=== PATIENT | female | born 1965 | race Caucasian/White ===

== ENCOUNTER 2022-03-31 15:10 | Emergency (ER) | payer OTHER, SELFPAY ==
[2022-03-31 15:20] VITALS: BP 124/80; PULSE 88; RESP 16; TEMP 37.4; O2SAT 99; BMI 22.8
--- NOTE | 2022-03-31 16:02 | CRLHL7_ITS ---
For Patients: As a result of the Century Cures Act, medical imaging exams and procedure reports are released immediately into your electronic medical record. You may view this report before your referring provider. If you have questions, please contact your health care provider. INDICATION: Left upper quadrant abdomen pain. TECHNIQUE: CT abdomen and pelvis without contrast. COMPARISON: None. FINDINGS: Lower chest: Unremarkable. Liver: Normal in size and attenuation. No suspicious masses. Gallbladder and bile ducts: No stones or inflammation. No biliary dilatation. Pancreas: Unremarkable. No mass or inflammation. Spleen: Normal in size. No masses. Adrenal glands: Normal in size. No nodules. Kidneys: Normal in size. No suspicious masses, stones, or hydronephrosis. GI tract: There is acute inflammation of a diverticulum in the proximal descending colon. No sign of salomon perforation or abscess. Remainder of the exam is unremarkable. Normal appendix. Vasculature: Abdominal aorta is normal in caliber. Lymph nodes: No lymphadenopathy. Peritoneum/Abdominal Wall: Unremarkable. No sign of mass or infiltration. No free air or significant free fluid. Pelvis: Unremarkable. No pelvic masses. Bones: Unremarkable for age. IMPRESSION: Acute uncomplicated diverticulitis in the proximal descending colon. Please note that all CT scans at this facility use dose modulation, iterative reconstruction, and/or weight-based dosing when appropriate to reduce radiation dose to as low as reasonably achievable. Dictated by Shahid Ambriz MD @ 03/31/2022 4:39:35 PM (Electronically Signed)
--- NOTE | 2022-03-31 16:05 | ED.GENADULT ---
HPI - General Adult General Time Seen by Provider: 16:06 Date Seen: 03/31/22 Chief complaint: Abdominal Pain Stated complaint: Abdominal Pain Time Seen by Provider: 03/31/22 15:56 Source: patient Mode of arrival: ambulatory Limitations: no limitations History of Present Illness HPI narrative: Patient is a 56-year-old female who reports some left upper quadrant pain starting this morning took some ibuprofen, seemed to get better, not going to come back. She feels a little bit chilled as well, and a little bit ?off?. No dysuria, no frequency, no hematuria, no bowel or bladder symptoms. No cough chest pain. She can make it hurt in the left upper quadrant with palpation and her lower costochondral margin area. No bleeding or clotting problems, pain was moderate, nonradiating Related Data Previous Rx's Medication Instructions Recorded amoxicillin 500 mg-potassium 1 tab PO BID #10 tabs 03/31/22 clavulanate 125 mg tablet (Augmentin) Allergies Allergy/AdvReac Type Severity Reaction Status Date / Time No Known Drug Allergies Allergy Verified 03/31/22 15:27 Review of Systems Status of ROS: Reports: 6 or more systems reviewed and unremarkable except as noted in History and below PFSH PFS Social History Smoking Status: Never smoker How often do you have a drink containing alcohol: never AUDIT-C Alcohol total score: 0 Non-prescribed substance use: denies use Exam Narrative: Exam Narrative: Objective: Patient has a low-grade temperature, appears in no apparent distress HEENT unremarkable Neck is supple Pulses regular Abdominal exam shows some left upper quadrant tenderness right along the costochondral margin and a bit in the abdomen is definitely tender to touch bowel sounds normoactive no rebound no other abdominal tenderness extremities are no edema Neurologic nonfocal Peripheral perfusion is good, skin warm and dry Const: Vital Signs, click to edit/add: Vital Signs - 24 hr 03/31/22 15:20 Temperature 99.3 F Pulse Rate [Right Pulse Oximeter] 88 Respiratory Rate 16 Blood Pressure [Ri ght Upper Arm] 124/80 Pulse Oximetry 99 Oxygen Delivery Me thod Room Air Course Vital Signs Vital signs: Initial Vital Signs Temperature 99.3 F 03/31/22 15:20 Temperature Source Temporal Artery Scan 03/31/22 15:20 Pulse Rate 88 03/31/22 15:20 Respiratory Rate 16 03/31/22 15:20 Blood Pressure 124/80 03/31/22 15:20 Blood Pressure Mean 94 03/31/22 15:20 Blood Pressure Position Sitting 03/31/22 15:20 Pulse Oximetry 99 03/31/22 15:20 Oxygen Delivery Method 03/31/22 15:20 Vital Signs Temperature 99.3 F 03/31/22 15:20 Pulse Rate 88 03/31/22 15:20 Respiratory Rate 16 03/31/22 15:20 Blood Pressure 124/80 03/31/22 15:20 Pulse Oximetry 99 03/31/22 15:20 Oxygen Delivery Method 03/31/22 15:20 Temperature 99.3 F 03/31/22 15:20 Pulse Rate 88 03/31/22 15:20 Respiratory Rate 16 03/31/22 15:20 Blood Pressure 124/80 03/31/22 15:20 Pulse Oximetry 99 03/31/22 15:20 Oxygen Delivery Method 03/31/22 15:20 Medical Decision Making [facility] Narrative Medical decision making narrative: Patient has some left upper quadrant abdominal pain with fever, I think rule out lower lobe pneumonia rule out diverticulitis would be appropriate. Will check labs electrolytes, patient declines any pain medicine at this time, IV fluid be given. Check electrolytes liver function profile amylase urinalysis. Addendum: Patient has uncomplicated diverticulitis in the proximal descending colon, weight her other labs, will give her Augmentin 875 now and then b.i.d. for 5 days, clear diet for 24-48 hours, recheck with primary care at that time not improving changes concerns worsening return to ED. Lab Data Labs: Lab Results 03/31/22 03/31/22 03/31/22 Range/Units 16:03 16:33 16:33 WBC 9.36 (4.50-11.00) K/uL RBC 4.45 (4.00-5.20) m/uL Hgb 13.8 (12.0-16.0) gm/dL Hct 40.3 (33.0-51.0) % MCV 91 (80-100) fL MCH 31 (26-34) pg MCHC 34 (32-36) gm/dL RDW Coeff of Demetrius 11.7 (11.5-15.5) % Plt Count 139 L (140-440) K/uL Neut % (Auto) 68.4 (42.0-72.0) % Lymph % (Auto) 26.5 (20-44) % [place] % (Auto) 4.7 (0.0-11.0) % Eos % (Auto) 0.2 (0.0-7.0) % Baso % (Auto) 0.1 (0.0-3.0) % Neut # (Auto) 6.40 (1.7-7.0) K/uL Lymph # (Auto) 2.48 (0.90-2.90) K/uL [place] # (Auto) 0.40 (0.00-0.90) K/UL Eos # (Auto) 0.02 (0.00-0.50) K/uL Baso # (Auto) 0.01 (0.00-0.30) K/uL Abs Immat Gran (auto) 0.01 (0.00-0.30) K/uL Sodium 141 (135-149) mmol/L Potassium 3.8 (3.6-5.1) mmol/L Chloride 101 (96-114) mmol/L Carbon Dioxide 26 (20-32) mmol/L BUN 15 (7-30) mg/dL Creatinine 0.5 (0.5-1.5) mg/dL Estimated Creat Clear 128.24 Estimated GFR 111 ml/min Glucose 99 (60-115) mg/dL Calcium 9.8 (8.4-10.6) mg/dL Total Bilirubin 1.1 (0.1-1.5) mg/dL Direct Bilirubin 0.0 (0.0-0.5) mg/dL AST 25 (12-35) U/L ALT 22 (4-35) U/L Alkaline Phosphatase 114 (40-150) U/L C-Reactive Protein (0.5-1.0) mg/dL Total Protein 7.8 (6.0-8.3) g/dL Albumin 4.9 (3.3-5.0) g/dL Amylase 83 (18-89) U/L Urine Color Yellow (Yellow) Urine Appearance Clear (Clear) Urine pH 5.5 (5.0-8.5) Ur Specific [place] 1.015 (1.000-1.030) Urine Protein Negative (Negative) Urine Glucose (UA) Negative (Negative) Urine Ketones 3+ A (Negative) Urine Blood 1+ A (Negative) Urine Nitrite Negative (Negative) Urine Bilirubin Negative (Negative) Urine Urobilinogen 0.2 (0.2-1.0) Ur Leukocyte Esterase Negative (Negative) Urine RBC 2-5 A (0-2) Urine WBC 0-2 (0-5) Ur Squamous Epith Cells Few (None-Few) Urine Bacteria None (None) 03/31/22 Range/Units 16:33 WBC (4.50-11.00) K/uL RBC (4.00-5.20) m/uL Hgb (12.0-16.0) gm/dL Hct (33.0-51.0) % MCV (80-100) fL MCH (26-34) pg MCHC (32-36) gm/dL RDW Coeff of Demetrius (11.5-15.5) % Plt Count (140-440) K/uL Neut % (Auto) (42.0-72.0) % Lymph % (Auto) (20-44) % [place] % (Auto) (0.0-11.0) % Eos % (Auto) (0.0-7.0) % Baso % (Auto) (0.0-3.0) % Neut # (Auto) (1.7-7.0) K/uL Lymph # (Auto) (0.90-2.90) K/uL [place] # (Auto) (0.00-0.90) K/UL Eos # (Auto) (0.00-0.50) K/uL Baso # (Auto) (0.00-0.30) K/uL Abs Immat Gran (auto) (0.00-0.30) K/uL Sodium (135-149) mmol/L Potassium (3.6-5.1) mmol/L Chloride (96-114) mmol/L Carbon Dioxide (20-32) mmol/L BUN (7-30) mg/dL Creatinine (0.5-1.5) mg/dL Estimated Creat Clear Estimated GFR ml/min Glucose (60-115) mg/dL Calcium (8.4-10.6) mg/dL Total Bilirubin (0.1-1.5) mg/dL Direct Bilirubin (0.0-0.5) mg/dL AST (12-35) U/L ALT (4-35) U/L Alkaline Phosphatase (40-150) U/L C-Reactive Protein 2.4 H (0.5-1.0) mg/dL Total Protein (6.0-8.3) g/dL Albumin (3.3-5.0) g/dL Amylase (18-89) U/L Urine Color (Yellow) Urine Appearance (Clear) Urine pH (5.0-8.5) Ur Specific [place] (1.000-1.030) Urine Protein (Negative) Urine Glucose (UA) (Negative) Urine Ketones (Negative) Urine Blood (Negative) Urine Nitrite (Negative) Urine Bilirubin (Negative) Urine Urobilinogen (0.2-1.0) Ur Leukocyte Esterase (Negative) Urine RBC (0-2) Urine WBC (0-5) Ur Squamous Epith Cells (None-Few) Urine Bacteria (None) Discharge Plan Discharge Clinical Impression: Abdominal pain, left upper quadrant, Diverticulitis Patient Disposition: Home, Self-Care Condition: Stable Additional Instructions: Liquid diet for 24 hours, Augmentin 875 b.i.d. x7 days, Advil or Tylenol as needed, follow-up with primary care return to ED as needed. Activity Level: Light activity Discharge Diet: Full Liquid Prescriptions: New amoxicillin-pot clavulanate [Augmentin] 500-125 mg tablet 1 tab PO BID Qty: 10 0RF Follow Up/Referrals: Waleska Ko MD [Primary Care Provider] - Stand Alone Forms: [employer] Info Instructions
[2022-03-31] MEDS: 0.9 % SODIUM CHLORIDE 1000 ml 1,000 ML 6000 ML IV (16:36)
[2022-03-31 16:41] LABS: Basophils Absolute Auto 0.01 K/uL (0.00-0.30); Basophils Percent Auto 0.1 % (0.0-3.0); Eosinophils Absolute Auto 0.02 K/uL (0.00-0.50); Eosinophils Percent Auto 0.2 % (0.0-7.0); Hematocrit 40.3 % (33.0-51.0); Hemoglobin* 13.8 gm/dL (12.0-16.0); Immature Granulocytes Abs Auto 0.01 K/uL (0.00-0.30); Lymphocytes Absolute Auto 2.48 K/uL (0.90-2.90); Lymphocytes Percent Auto 26.5 % (20-44); Mean Corpuscular HGB Conc 34 gm/dL (32-36); Mean Corpuscular Hemoglobin 31 pg (26-34); Mean Corpuscular Volume 91 fL (80-100); Monocytes Percent Auto 4.7 % (0.0-11.0); Neutrophils Percent Auto 68.4 % (42.0-72.0); Platelet Count* 139 K/uL (140-440); RDW Coefficient of Variation % 11.7 % (11.5-15.5); Red Blood Count 4.45 m/uL (4.00-5.20); White Blood Count* 9.36 K/uL (4.50-11.00)
[2022-03-31 16:45] LABS: Appearance Urine Clear (Clear); Bilirubin Urine Negative (Negative); Blood Urine 1+ (Negative); Color Urine Yellow (Yellow); Glucose Urine Negative (Negative); Ketones Urine 3+ (Negative); Leukocyte Esterase Urine Negative (Negative); Nitrite Urine Negative (Negative); Protein Urine Negative (Negative); Specific Gravity Urine 1.015 (1.000-1.030); Urobilinogen Urine 0.2 (0.2-1.0); pH Urine 5.5 (5.0-8.5)
[2022-03-31 16:47] LABS: Slide Review Reflex No
[2022-03-31] MEDS: IBUPROFEN 400 MG TABLET 800 MG PO (17:01)
[2022-03-31] MEDS: AMOXICILLIN/CLAVULANATE 875 mg/125 mg TABLET PO (17:01)
[2022-03-31 17:02] LABS: Squamous Epithelial Cell Urine Few (None-Few); WBC Urine 0-2 (0-5)
[2022-03-31 17:25] LABS: Albumin* 4.9 g/dL (3.3-5.0); Chloride* 101 mmol/L (96-114)
[2022-03-31 17:26] LABS: Potassium* 3.8 mmol/L (3.6-5.1); Sodium* 141 mmol/L (135-149)
[2022-03-31 17:28] LABS: Amylase* 83 U/L (18-89); Bilirubin Total* 1.1 mg/dL (0.1-1.5); Blood Urea Nitrogen* 15 mg/dL (7-30); Carbon Dioxide* 26 mmol/L (20-32); Creatinine* 0.5 mg/dL (0.5-1.5); Est. Creatinine Clearance* 128.24; Estimated Glomerular Filt Rate 111 ml/min; Total Protein* 7.8 g/dL (6.0-8.3)
[2022-03-31 17:29] LABS: Alanine Aminotransferase* 22 U/L (4-35); Alkaline Phosphatase* 114 U/L (40-150); Aspartate Amino Transferase* 25 U/L (12-35); Calcium* 9.8 mg/dL (8.4-10.6); Glucose* 99 mg/dL (60-115)
[2022-03-31 17:31] LABS: C Reactive Protein* 2.4 mg/dL (0.5-1.0)
== END 2022-03-31 17:21 | disposition home or self-care (01) ==
PROVIDERS: Emergency Provider Family Medicine; PCP Family Medicine
DX: R10.12 Left upper quadrant pain (principal); K57.92 Diverticulitis of intestine, part unspecified, without perforation or abscess without bleeding
CPT/HCPCS: 36415; 74176; 80048; 80076; 81001; 82150; 85025; 86140; 87086; 99284; A9270; J7030

== ENCOUNTER 2024-04-13 09:25 | Outpatient (CLI) | payer OTHER, SELFPAY | END 2024-04-13 09:26 | disposition home or self-care (01) | LOC: NFLDREF 04-16 18:27 | PROVIDERS: PCP Family Medicine; Referring Provider Family Medicine; Visit Provider Physician Assistant | DX: R30.0 Dysuria (principal) | CPT/HCPCS: 87086; 87186 ==